=== PATIENT | male | born 1990 | race Hispanic/Latino ===

== ENCOUNTER 2018-06-21 20:43 | Emergency (ER) | payer BC ==
[2018-06-21] MEDS ORDERED: Ondansetron PF 4 MG/2 ML Vial ONE (21:09)
[2018-06-21] MEDS ORDERED: Morphine 4 MG/ML VIAL ONE ×2 (21:09→22:28)
[2018-06-21] MEDS ORDERED: Sodium Chloride 0.9% 1,000 ML ONE ×2 (21:09→22:54)
[2018-06-21 21:17] LABS: #Lymphocytes 1.3 thou/uL (1.20-3.40); #Monocytes 0.6 thou/uL (0.11-0.59); #Neutrophils 17.3 thou/uL (1.40-6.50); %Basophils 0.2 % (0.0-1.0); %Neutrophils 89.9 % (42.0-75.0); Hemoglobin 14.9 g/dL (14.0-18.0); Mean Corpuscular HGB CONC 33.6 g/dL (32.0-36.0); Mean Corpuscular Hemoglobin 28.9 pg (27.0-31.0); Mean Corpuscular Volume 86.2 fL (78.0-98.0); Mean Platelet Volume 6.6 fL (7.4-10.4); Platelet Count 363 thou/uL (130-400); RBC Distribution Width 11.4 % (11.5-14.5); Red Blood Cell (RBC) Count 5.15 mill/uL (4.70-6.10); White Blood Cell (WBC) Count 19.2 thou/uL (4.8-10.8)
[2018-06-21 21:18] LABS: MDiff Complete? YES; Manual Diff?? NO
[2018-06-21 21:19] LABS: Bilirubin Negative (Negative); Blood, Urine Negative (Negative); Clarity Clear (Clear); Glucose, Urine (Dipstick) Negative (Negative); Leukocyte Negative (Negative); Nitrite Negative (Negative); Protein, Urine (Dipstick) Trace mg/dL (Neg-Trace); Urobilinogen 0.2 mg/dL (0.2-1.0); pH, Urine 5.5 (5.0-9.0)
[2018-06-21 21:20] LABS: Specific Gravity, Urine 1.033 (1.002-1.036)
[2018-06-21 21:52] LABS: ALT (SGPT) 26 U/L (8-55); AST (SGOT) 17 U/L (5-34); Albumin 4.7 g/dL (3.5-5.0); Alkaline Phosphatase 102 U/L (40-150); Anion Gap 16 mmol/L (10-20); BUN (Urea Nitrogen) 12 mg/dL (8.9-20.6); Bilirubin, Total 0.4 mg/dL (0.2-1.2); Calc. Creatinine Clearance 0 mL/min (70-130); Carbon Dioxide 23 mmol/L (22-29); Chloride 102 mmol/L (98-107); Estimated GFR-MDRD Greater than 90; Globulin 3.9 g/dL (2.4-3.5); Glucose 140 mg/dL (70-105); Lipase 14 U/L (8-78); Potassium 3.8 mmol/L (3.5-5.1); Protein, Total 8.6 g/dL (6.0-8.3); Sodium 137 mmol/L (136-145)
--- NOTE | 2018-06-21 22:13 | CT ---
CT OF ABDOMEN AND PELVIS PERFORMED WITH INTRAVENOUS CONTRAST ENHANCEMENT: 06/21/18 HISTORY: Right lower quadrant pain. The lung bases show some atelectatic change. Small hiatal hernia is noted. There is fluid within the distal esophagus suggesting some reflux. Liver, spleen, pancreas and gallbladder regions all appear unremarkable. Right and left adrenal glands and right and left kidneys are normal in size. No significant periaorti c or mesenteric lymphadenopathy. CT OF PELVIS PERFORMED WITH INTRAVENOUS CONTRAST ENHANCEMENT: The appendix shows an appendicolith at the base of the appendix. The appendix is enlarged. There is s ome early periappendiceal fat stranding. No free fluid within the pelvis. No pelvic lymphadenopathy or mass. IMPRESSION: CT findings compatible with early appendicitis. POS: [facility]
[2018-06-21] MEDS ORDERED: metroNIDAZOLE 500 MG/100 ML BAG ONE (22:22)
[2018-06-21] MEDS ORDERED: cefTRIAXone\\ROCEPHIN 1 GM VIAL ONE (22:28)
== END 2018-06-21 23:20 | disposition short-term general hospital (02) ==
LOC: NAV ERS 20:43
DX: K35.80 Unspecified acute appendicitis (principal)
CPT/HCPCS: 36415; 74177; 80053; 81003; 83605; 83690; 85025; 96361; 96365; 96375; 96376; J0696; J2270; J2405; J7050

== ENCOUNTER 2021-01-11 12:23 | Emergency (ER) | payer BC ==
[2021-01-11] MEDS ORDERED: Acetaminophen 500 MG TAB ONE (13:25)
[2021-01-11] MEDS ORDERED: Dexamethasone 20 MG/5 ML VIAL ONE (13:25)
== END 2021-01-11 13:36 | disposition home or self-care (01) ==
LOC: NAV ERS 12:23
DX: J02.9 Acute pharyngitis, unspecified (principal)
CPT/HCPCS: 87081; 87430; 99283; J1100